=== PATIENT | male | born 1960 | race Caucasian/White ===

== ENCOUNTER 2023-11-28 06:27 | Day surgery (SDC) | payer MEDICARE ==
[~2023-11-28 06:27] MED LIST: Acetaminophen 1,000 MG in Premix Bag 1 BAG IV SCH; Albuterol 0.083% 2.5 MG/3 ML Neb Soln NEB PRN; HYDROmorphone 1 MG/ML Syringe IVPUSH PRN; Metoclopramide 10 MG/2 ML SDV IVPUSH PRN; Morphine 2 MG/ML SYRINGE IVPUSH PRN; Naloxone 0.4 MG/ML SDV IVPUSH PRN; Ondansetron 4 MG/2 ML SDV IVPUSH PRN; droPERidol 5 MG/2 ML SDV IVPUSH PRN; fentaNYL 50 MCG/ML SDV IVPUSH PRN
[2023-11-28] MEDS: Pregabalin 75 MG Cap PO SCH (06:50)
[2023-11-28] MEDS: Lactated Ringers 1,000 ML IV SCH (06:59)
[2023-11-28] MEDS ORDERED: Bupivacaine 0.5% 30 ML SDV ONE (07:18)
[2023-11-28] MEDS ORDERED: fentaNYL 100 MCG/2 ML SDV ONE (07:33)
[2023-11-28] MEDS ORDERED: propofoL 0 ML ONE (07:33)
[2023-11-28] MEDS ORDERED: Water For Injection, Sterile 20 ML ONE (07:34)
[2023-11-28] MEDS ORDERED: dexmedeTOMIDine HCl 200 MCG/2 ML SDV ONE (07:34)
[2023-11-28] MEDS ORDERED: Propofol 200 MG/20 ML SDV ONE (07:34)
[2023-11-28] MEDS ORDERED: Rocuronium Bromide 50 MG/5 ML Syringe ONE (07:34)
[2023-11-28] MEDS ORDERED: Bupivacaine 0.25% 30 ML SDV ONE (07:42)
[2023-11-28] MEDS ORDERED: Bupivacaine 0.5%/EPINEPHrine 1:200,000 30 ML SDV ONE (07:42)
[2023-11-28] MEDS ORDERED: Magnesium Sulfate (4.06 MEQ/ML) 5 GM/10 ML SDV ONE (08:09)
[2023-11-28] MEDS ORDERED: ceFAZolin 2 GM Vial ONE (08:10)
[2023-11-28] MEDS ORDERED: ePHEDrine 50 MG/ML SDV ONE (08:16)
[2023-11-28] MEDS ORDERED: Ondansetron 4 MG/2 ML SDV ONE (08:17)
[2023-11-28] MEDS ORDERED: Dexamethasone 4 MG/ML 5 ML MDV ONE (08:17)
[2023-11-28] MEDS ORDERED: ceFAZolin 2 GM in Sodium Chloride 0.9% 50 ML IV ONE (09:15)
[2023-11-28] MEDS ORDERED: Sugammadex Sodium 200 MG/2 ML VIAL IV ONE (09:27)
== END 2023-11-28 12:40 | disposition home or self-care (01) ==
LOC: MW.SDS 06:27
PROVIDERS: ATTEND Surgery
DX: K40.90 Unilateral inguinal hernia, without obstruction or gangrene, not specified as recurrent (principal); D17.6 Benign lipomatous neoplasm of spermatic cord; I10 Essential (primary) hypertension; E78.00 Pure hypercholesterolemia, unspecified; Z79.899 Other long term (current) drug therapy; Z87.891 Personal history of nicotine dependence
CPT/HCPCS: 49650; 64486; 64488; A9270; C1781; J0131; J0665; J0690; J1100; J2405; J2704; J3010; J3475; J3490; J7120; 00830